=== PATIENT | male | born 1970 | race Hispanic/Latino ===

== ENCOUNTER 2024-09-24 12:40 | Outpatient (CLI) | payer OTHER | END 2024-09-24 12:41 | disposition home or self-care (01) | LOC: CSHWCC 12:40 | PROVIDERS: ATTEND Nurse Practitioner Family | DX: E11.621 Type 2 diabetes mellitus with foot ulcer (principal); L97.525 Non-pressure chronic ulcer of other part of left foot with muscle involvement without evidence of necrosis; I63.9 Cerebral infarction, unspecified; E11.51 Type 2 diabetes mellitus with diabetic peripheral angiopathy without gangrene; I73.9 Peripheral vascular disease, unspecified | CPT/HCPCS: 11042; 99213; G0463 ==

== ENCOUNTER 2024-10-01 14:19 | Outpatient (CLI) | payer OTHER | END 2024-10-01 14:20 | disposition home or self-care (01) | LOC: CSHWCC 14:19 | PROVIDERS: ATTEND Nurse Practitioner Family | DX: E11.621 Type 2 diabetes mellitus with foot ulcer (principal); L97.525 Non-pressure chronic ulcer of other part of left foot with muscle involvement without evidence of necrosis; E11.51 Type 2 diabetes mellitus with diabetic peripheral angiopathy without gangrene; I63.9 Cerebral infarction, unspecified | CPT/HCPCS: 11043; 99213; G0463 ==

== ENCOUNTER 2024-10-03 13:59 | Outpatient (CLI) | payer OTHER | END 2024-10-03 14:00 | disposition home or self-care (01) | LOC: CSHWCC 13:59 | PROVIDERS: ATTEND Nurse Practitioner Family | DX: E11.621 Type 2 diabetes mellitus with foot ulcer (principal); L97.525 Non-pressure chronic ulcer of other part of left foot with muscle involvement without evidence of necrosis; I63.9 Cerebral infarction, unspecified; E11.59 Type 2 diabetes mellitus with other circulatory complications | CPT/HCPCS: 99212; G0463 ==

== ENCOUNTER 2024-10-06 12:54 | Outpatient (CLI) | payer OTHER | END 2024-10-06 12:55 | disposition home or self-care (01) | LOC: CSHWCC 12:54 | PROVIDERS: ATTEND Nurse Practitioner Family | DX: E11.621 Type 2 diabetes mellitus with foot ulcer (principal); L97.525 Non-pressure chronic ulcer of other part of left foot with muscle involvement without evidence of necrosis; E11.51 Type 2 diabetes mellitus with diabetic peripheral angiopathy without gangrene; I73.9 Peripheral vascular disease, unspecified; I63.9 Cerebral infarction, unspecified | CPT/HCPCS: 11042 ==

== ENCOUNTER 2024-10-10 14:28 | Outpatient (CLI) | payer OTHER | END 2024-10-10 14:29 | disposition home or self-care (01) | LOC: CSHWCC 14:28 | PROVIDERS: ATTEND Nurse Practitioner Family | DX: E11.621 Type 2 diabetes mellitus with foot ulcer (principal); L97.525 Non-pressure chronic ulcer of other part of left foot with muscle involvement without evidence of necrosis; I63.9 Cerebral infarction, unspecified; E11.59 Type 2 diabetes mellitus with other circulatory complications | CPT/HCPCS: 99212; G0463 ==

== ENCOUNTER 2024-10-13 13:59 | Outpatient (CLI) | payer OTHER | END 2024-10-13 14:00 | disposition home or self-care (01) | LOC: CSHWCC 13:59 | PROVIDERS: ATTEND Nurse Practitioner Family | DX: E11.621 Type 2 diabetes mellitus with foot ulcer (principal); L97.525 Non-pressure chronic ulcer of other part of left foot with muscle involvement without evidence of necrosis; E11.51 Type 2 diabetes mellitus with diabetic peripheral angiopathy without gangrene; I63.9 Cerebral infarction, unspecified | CPT/HCPCS: 11042 ==

== ENCOUNTER 2024-10-17 13:27 | Outpatient (CLI) | payer OTHER | END 2024-10-17 13:28 | disposition home or self-care (01) | LOC: CSHWCC 13:27 | PROVIDERS: ATTEND Nurse Practitioner Family | DX: E11.621 Type 2 diabetes mellitus with foot ulcer (principal); L97.525 Non-pressure chronic ulcer of other part of left foot with muscle involvement without evidence of necrosis; I63.9 Cerebral infarction, unspecified; E11.59 Type 2 diabetes mellitus with other circulatory complications | CPT/HCPCS: 99213; G0463 ==

== ENCOUNTER 2024-10-21 13:14 | Outpatient (CLI) | payer OTHER | END 2024-10-21 13:15 | disposition home or self-care (01) | LOC: CSHWCC 13:14 | PROVIDERS: ATTEND Nurse Practitioner Family | DX: E11.621 Type 2 diabetes mellitus with foot ulcer (principal); L97.525 Non-pressure chronic ulcer of other part of left foot with muscle involvement without evidence of necrosis; I63.9 Cerebral infarction, unspecified; E11.51 Type 2 diabetes mellitus with diabetic peripheral angiopathy without gangrene; I73.9 Peripheral vascular disease, unspecified | CPT/HCPCS: 11042 ==

== ENCOUNTER 2024-10-24 10:56 | Outpatient (CLI) | payer OTHER | END 2024-10-24 10:57 | disposition home or self-care (01) | LOC: CSHWCC 10:56 | PROVIDERS: ATTEND Nurse Practitioner Family | DX: E11.621 Type 2 diabetes mellitus with foot ulcer (principal); L97.525 Non-pressure chronic ulcer of other part of left foot with muscle involvement without evidence of necrosis; I63.9 Cerebral infarction, unspecified; E11.59 Type 2 diabetes mellitus with other circulatory complications | CPT/HCPCS: 99213; G0463 ==

== ENCOUNTER 2024-10-27 14:21 | Outpatient (CLI) | payer OTHER | END 2024-10-27 14:22 | disposition home or self-care (01) | LOC: CSHWCC 14:21 | PROVIDERS: ATTEND Nurse Practitioner Family | DX: E11.621 Type 2 diabetes mellitus with foot ulcer (principal); L97.525 Non-pressure chronic ulcer of other part of left foot with muscle involvement without evidence of necrosis; I63.9 Cerebral infarction, unspecified; E11.59 Type 2 diabetes mellitus with other circulatory complications | CPT/HCPCS: 11042 ==

== ENCOUNTER 2024-10-31 15:28 | Outpatient (CLI) | payer OTHER | END 2024-10-31 15:29 | disposition home or self-care (01) | LOC: CSHWCC 15:28 | PROVIDERS: ATTEND Family Medicine | DX: E11.621 Type 2 diabetes mellitus with foot ulcer (principal); L97.525 Non-pressure chronic ulcer of other part of left foot with muscle involvement without evidence of necrosis; I63.9 Cerebral infarction, unspecified; E11.51 Type 2 diabetes mellitus with diabetic peripheral angiopathy without gangrene; I73.9 Peripheral vascular disease, unspecified | CPT/HCPCS: 99212; G0463 ==

== ENCOUNTER 2024-11-03 15:33 | Outpatient (CLI) | payer OTHER | END 2024-11-03 15:34 | disposition home or self-care (01) | LOC: CSHWCC 15:33 | PROVIDERS: ATTEND Family Medicine | DX: L97.525 Non-pressure chronic ulcer of other part of left foot with muscle involvement without evidence of necrosis (principal); E11.621 Type 2 diabetes mellitus with foot ulcer; E11.51 Type 2 diabetes mellitus with diabetic peripheral angiopathy without gangrene; I63.9 Cerebral infarction, unspecified | CPT/HCPCS: 11042 ==

== ENCOUNTER 2024-11-07 12:51 | Outpatient (CLI) | payer OTHER | END 2024-11-07 12:52 | disposition home or self-care (01) | LOC: CSHWCC 12:51 | PROVIDERS: ATTEND Nurse Practitioner Family | DX: E11.621 Type 2 diabetes mellitus with foot ulcer (principal); L97.525 Non-pressure chronic ulcer of other part of left foot with muscle involvement without evidence of necrosis; I63.9 Cerebral infarction, unspecified; E11.51 Type 2 diabetes mellitus with diabetic peripheral angiopathy without gangrene | CPT/HCPCS: 99212; G0463 ==

== ENCOUNTER 2024-11-10 15:54 | Outpatient (CLI) | payer OTHER | END 2024-11-10 15:55 | disposition home or self-care (01) | LOC: CSHWCC 15:54 | PROVIDERS: ATTEND Nurse Practitioner Family | DX: E11.621 Type 2 diabetes mellitus with foot ulcer (principal); L97.525 Non-pressure chronic ulcer of other part of left foot with muscle involvement without evidence of necrosis; I63.9 Cerebral infarction, unspecified; E11.51 Type 2 diabetes mellitus with diabetic peripheral angiopathy without gangrene | CPT/HCPCS: 11042 ==

== ENCOUNTER 2024-11-17 14:17 | Outpatient (CLI) | payer OTHER | END 2024-11-17 14:18 | disposition home or self-care (01) | LOC: CSHWCC 14:17 | PROVIDERS: ATTEND Nurse Practitioner Family | DX: E11.621 Type 2 diabetes mellitus with foot ulcer (principal); L97.525 Non-pressure chronic ulcer of other part of left foot with muscle involvement without evidence of necrosis; E11.51 Type 2 diabetes mellitus with diabetic peripheral angiopathy without gangrene; I63.9 Cerebral infarction, unspecified | CPT/HCPCS: 11042 ==

== ENCOUNTER 2024-11-25 12:48 | Outpatient (CLI) | payer OTHER | END 2024-11-25 12:49 | disposition home or self-care (01) | LOC: CSHWCC 12:48 | PROVIDERS: ATTEND Nurse Practitioner Family | DX: E11.621 Type 2 diabetes mellitus with foot ulcer (principal); L97.525 Non-pressure chronic ulcer of other part of left foot with muscle involvement without evidence of necrosis; E11.59 Type 2 diabetes mellitus with other circulatory complications; I63.9 Cerebral infarction, unspecified | CPT/HCPCS: 11042 ==

== ENCOUNTER 2024-12-02 14:22 | Outpatient (CLI) | payer OTHER | END 2024-12-02 14:23 | disposition home or self-care (01) | LOC: CSHWCC 14:22 | PROVIDERS: ATTEND Nurse Practitioner Family | DX: E11.621 Type 2 diabetes mellitus with foot ulcer (principal); L97.525 Non-pressure chronic ulcer of other part of left foot with muscle involvement without evidence of necrosis; I63.9 Cerebral infarction, unspecified; E11.59 Type 2 diabetes mellitus with other circulatory complications | CPT/HCPCS: 11042 ==

== ENCOUNTER 2024-12-09 14:16 | Outpatient (CLI) | payer OTHER | END 2024-12-09 14:17 | disposition home or self-care (01) | LOC: CSHWCC 14:16 | PROVIDERS: ATTEND Nurse Practitioner Family | DX: E11.621 Type 2 diabetes mellitus with foot ulcer (principal); L97.525 Non-pressure chronic ulcer of other part of left foot with muscle involvement without evidence of necrosis; E11.51 Type 2 diabetes mellitus with diabetic peripheral angiopathy without gangrene; I63.9 Cerebral infarction, unspecified | CPT/HCPCS: 11042 ==

== ENCOUNTER 2025-01-01 11:38 | Outpatient (CLI) | payer OTHER | END 2025-01-01 11:39 | disposition home or self-care (01) | LOC: CSHWCC 11:38 | PROVIDERS: ATTEND Nurse Practitioner Family | DX: E11.621 Type 2 diabetes mellitus with foot ulcer (principal); L97.525 Non-pressure chronic ulcer of other part of left foot with muscle involvement without evidence of necrosis; I63.9 Cerebral infarction, unspecified; E11.51 Type 2 diabetes mellitus with diabetic peripheral angiopathy without gangrene; I73.9 Peripheral vascular disease, unspecified | CPT/HCPCS: 97597 ==